=== PATIENT | female | born 1955 | race Caucasian/White ===

== ENCOUNTER 2022-03-14 07:10 | Day surgery (SDC) | payer MEDICARE, BC ==
[~2022-03-14 07:10] MED LIST: Midazolam 1 MG/ML 2 ML SDV ONE; Propofol 200 MG/20 ML SDV ONE; fentaNYL 50 MCG/ML SDV ONE
[2022-03-14] MEDS ORDERED: Dextrose 5%-Lactated Ringers 1,000 ML IV SCH (07:45)
[2022-03-14] MEDS ORDERED: Ondansetron 4 MG/2 ML SDV ONE (09:16)
[2022-03-14 11:32] VITALS: BP 128/72; PULSE 59
== END 2022-03-14 12:15 | disposition home or self-care (01) ==
LOC: JP.SDS 07:10
PROVIDERS: ATTEND Surgery
DX: Z12.11 Encounter for screening for malignant neoplasm of colon (principal); K29.60 Other gastritis without bleeding; K57.30 Diverticulosis of large intestine without perforation or abscess without bleeding; K64.8 Other hemorrhoids; K21.9 Gastro-esophageal reflux disease without esophagitis; N18.9 Chronic kidney disease, unspecified; G47.33 Obstructive sleep apnea (adult) (pediatric); Z86.010 Personal history of colon polyps; Z98.890 Other specified postprocedural states; Z88.0 Allergy status to penicillin; Z88.2 Allergy status to sulfonamides; Z88.6 Allergy status to analgesic agent; Z88.8 Allergy status to other drugs, medicaments and biological substances; Z91.040 Latex allergy status; Z79.899 Other long term (current) drug therapy
CPT/HCPCS: 43239; 87081; G0105; J2250; J2405; J2704; J3010; J7121

== ENCOUNTER 2022-10-30 14:18 | Emergency (ER) | payer MEDICARE, BC ==
[2022-10-30] MEDS ORDERED: Sodium Chloride 0.9% 10 ML Syringe FLUSH PRN (14:59)
[2022-10-30] MEDS ORDERED: Sodium Chloride 0.9% 1,000 ML IV SCH (15:00)
[2022-10-30] MEDS ORDERED: fentaNYL 100 MCG/2 ML SDV IVPUSH ONE ×2 (15:01→16:09)
[2022-10-30] MEDS ORDERED: droPERidol 5 MG/2 ML SDV IVPUSH ONE (15:01)
[2022-10-30 15:09] LABS: BASOPHILS ABSOLUTE AUTO 0.05 K/uL (0.00-0.10); BASOPHILS PERCENT AUTO 0.8 % (0.1-1.3); EOSINOPHILS ABSOLUTE AUTO 0.17 K/uL (0.00-0.40); EOSINOPHILS PERCENT AUTO 2.6 % (0.0-5.4); HEMOGLOBIN 14.8 g/dL (11.2-15.5); IMMATURE GRAN ABSOLUTE AUTO 0.01 K/uL (0.00-0.23); IMMATURE GRAN PERCENT AUTO 0.2 % (0.0-0.7); LYMPHOCYTES ABSOLUTE AUTO 1.84 K/uL (0.8-3.3); LYMPHOCYTES PERCENT AUTO 28.3 % (11.4-47.7); MEAN CORPUSCULAR HGB CONC 33.6 g/dL (31.6-35.5); MONOCYTES ABSOLUTE AUTO 0.47 K/uL (0.20-0.90); MONOCYTES PERCENT AUTO 7.2 % (3.3-12.6); NEUTROPHILS ABSOLUTE AUTO 3.97 K/uL (1.0-7.6); NEUTROPHILS PERCENT AUTO 60.9 % (40.0-78.1); PLATELET COUNT,PLT 232 K/uL (130-375); RED BLOOD CELL COUNT 4.49 M/uL (3.77-5.24); WHITE BLOOD CELL COUNT,WBC 6.5 K/uL (3.2-11.0)
[2022-10-30] MEDS ORDERED: Sodium Chloride 0.9% 10 ML Syringe FLUSH ONE (15:11)
[2022-10-30] MEDS ORDERED: Sodium Chloride 0.9% 50 ML IV SCH (15:15)
[2022-10-30] MEDS ORDERED: Iopamidol 612 MG/ML 100 ML Bottle IV SCH (15:15)
[2022-10-30 15:32] LABS: A/G RATIO 1.1 (1.2-2.2); ALANINE AMINOTRANSFERASE,ALT 23 U/L (12-78); ALBUMIN 3.5 g/dL (3.4-5.0); ALKALINE PHOSPHATASE 89 U/L (46-116); ANION GAP 8.8 mmol/L (5.0-14.0); ASPARTATE AMNIOTRANSFERASE,AST 16 U/L (15-37); BILIRUBIN TOTAL 0.2 mg/dL (0.2-1.0); BLOOD UREA NITROGEN,BUN 16 mg/dL (7-18); CARBON DIOXIDE,CO2 27 mmol/L (21-32); CHLORIDE,CL 106 mmol/L (100-108); ESTIMATED GFR 63 mL/min (>60); GLUCOSE RANDOM 98 mg/dL (74-106); POTASSIUM,K 4.3 mmol/L (3.6-5.2); PROTEIN TOTAL,TP 6.7 g/dL (6.4-8.2); SODIUM,NA 142 mmol/L (140-148); TROPONIN I HIGH SENSITIVITY < 4.0 pg/mL (<=60.3)
[2022-10-30] MEDS ORDERED: Ketorolac 30 MG/ML SDV IVPUSH ONE (16:37)
[2022-10-30] MEDS ORDERED: Bupivacaine 0.5% 30 ML SDV ONE (18:33)
[2022-10-30 18:34] VITALS: BP 124/71; PULSE 55
[2022-10-30] MEDS ORDERED: methylPREDNISolone Sodium Succinate 40 MG/1 ML SDV IVPUSH ONE (18:43)
== END 2022-10-30 19:14 | disposition home or self-care (01) ==
LOC: JP.ED 14:18
DX: R07.89 Other chest pain (principal); E78.00 Pure hypercholesterolemia, unspecified; I10 Essential (primary) hypertension; Z88.5 Allergy status to narcotic agent; Z88.1 Allergy status to other antibiotic agents; Z88.0 Allergy status to penicillin; Z88.8 Allergy status to other drugs, medicaments and biological substances; Z88.2 Allergy status to sulfonamides; Z91.040 Latex allergy status; Z79.899 Other long term (current) drug therapy; Z79.82 Long term (current) use of aspirin; Z86.16 Personal history of COVID-19
CPT/HCPCS: 36415; 64421; 71260; 80053; 84484; 85025; 96374; 96375; 96376; 99285; J1790; J1885; J2920; J3010; J3490; J7030; Q9967

== ENCOUNTER 2023-05-10 15:14 | Emergency (ER) | payer MEDICARE, BC ==
[2023-05-10 15:49] LABS: BASOPHILS ABSOLUTE AUTO 0.03 K/uL (0.00-0.10); BASOPHILS PERCENT AUTO 0.3 % (0.1-1.3); EOSINOPHILS PERCENT AUTO 0.2 % (0.0-5.4); HEMOGLOBIN 14.4 g/dL (11.2-15.5); IMMATURE GRAN ABSOLUTE AUTO 0.09 K/uL (0.00-0.23); IMMATURE GRAN PERCENT AUTO 0.9 % (0.0-0.7); LYMPHOCYTES ABSOLUTE AUTO 1.14 K/uL (0.8-3.3); LYMPHOCYTES PERCENT AUTO 11.4 % (11.4-47.7); MEAN CORPUSCULAR HEMOGLOBIN 33.2 pg (31.6-35.5); MEAN CORPUSCULAR HGB CONC 34.3 g/dL (31.6-35.5); MEAN CORPUSCULAR VOLUME 96.8 fL (81.4-99.0); MONOCYTES ABSOLUTE AUTO 0.31 K/uL (0.20-0.90); MONOCYTES PERCENT AUTO 3.1 % (3.3-12.6); NEUTROPHILS ABSOLUTE AUTO 8.44 K/uL (1.0-7.6); NEUTROPHILS PERCENT AUTO 84.1 % (40.0-78.1); PLATELET COUNT,PLT 258 K/uL (130-375); RED BLOOD CELL COUNT 4.34 M/uL (3.77-5.24)
[2023-05-10 15:50] LABS: EOSINOPHILS ABSOLUTE AUTO 0.02 K/uL (0.00-0.40)
[2023-05-10 16:09] LABS: PROTHROMBIN TIME 10.1 sec (9.2-10.6); PTT,PARTIAL THROMBOPLSTIN TIME 24.8 sec (21.8-27.3)
[2023-05-10] MEDS: Sodium Chloride 0.9% 10 ML Syringe FLUSH PRN (16:09)
[2023-05-10 16:13] LABS: CALCIUM 8.9 mg/dL (8.5-10.1); CREATININE 1.2 mg/dL (0.6-1.0); EST CRCL DRUG DOSING (CG) 38.66 mL/min; TROPONIN I HIGH SENSITIVITY 4.5 pg/mL (<=60.3)
[2023-05-10 16:47] VITALS: BP 162/87; PULSE 69
== END 2023-05-10 17:10 | disposition home or self-care (01) ==
LOC: JP.ED 15:14
DX: E86.0 Dehydration (principal); G89.29 Other chronic pain; M54.50 Low back pain, unspecified; T50.905A Adverse effect of unspecified drugs, medicaments and biological substances, initial encounter; I10 Essential (primary) hypertension; E78.00 Pure hypercholesterolemia, unspecified; M19.90 Unspecified osteoarthritis, unspecified site; Z79.82 Long term (current) use of aspirin; Z86.16 Personal history of COVID-19; Z88.8 Allergy status to other drugs, medicaments and biological substances; Z88.5 Allergy status to narcotic agent; Z88.0 Allergy status to penicillin; Z88.1 Allergy status to other antibiotic agents; Z88.2 Allergy status to sulfonamides; Z91.040 Latex allergy status; Z79.899 Other long term (current) drug therapy
CPT/HCPCS: 36415; 70450; 70450-26; 80048; 82947; 84484; 85025; 85610; 85730; 93005; 93010; 99284; 99285; J3490